=== PATIENT | male | born 1935 | race Caucasian/White ===

== ENCOUNTER → 2016-05-24 12:45 | Outpatient (CLI) | payer MEDICARE ==
[2012-08-16 07:41] VITALS: BMI 25.4
[~2016-05-24 12:45] MED LIST: ALLEGRA180 MG PO; ASPIRIN325 MG PO; BENADRYL25 MG PO; CRESTOR10 MG PO; FLOMAX0.4 MG PO; NEXIUM40 MG PO; NORVASC5 MG PO; PRINIVIL20 MG PO
== END | disposition home or self-care (01) ==
LOC: D.US 12:45
DX: M79.604 Pain in right leg (principal); R60.0 Localized edema

== ENCOUNTER → 2018-05-05 07:43 | Outpatient (CLI) | payer MEDICARE ==
[2012-08-16 07:41] VITALS: BMI 25.4
== END | disposition home or self-care (01) ==
LOC: D.RAD 07:43
PROVIDERS: ATTEND Internal Medicine Gastroenterology
DX: K92.1 Melena (principal)

== ENCOUNTER 2018-06-01 06:02 | Day surgery (SDC) | payer MEDICARE ==
[~2018-06-01] VITALS: Ht 167.6 cm; Wt 70.5 kg
[2018-06-01 06:25] LABS: HEMATOCRIT 36.5 % (42.0-54.0); HEMOGLOBIN 11.8 g/dL (13.5-17.5); MCH 26.8 pg (26.0-34.0); MCHC 32.3 g/dL (31.0-37.0); MCV 82.8 fL (80.0-100.0); MEAN PLATELET VOLUME 8.9 fL (7.4-10.4); RBC 4.41 10x6/uL (4.20-6.10); RDW 15.1 % (11.5-14.5)
[2018-06-01] MEDS ORDERED: XARELTO15 MG PO (07:12)
[2018-06-01 07:21] VITALS: BP 116/55; Ht 167.6 cm; Wt 70.5 kg
--- NOTE | 2018-06-01 09:53 | NUR ---
PER DR. MUJICA, RESUME ASA. IV D/C'D WITH CANNULA INTACT. VSS. NO C/O. DISCHARGE INSTRUCTIONS GIVEN, VERBALIZED AN UNDERSTANDING
--- NOTE | 2018-06-01 10:11 | OP ---
PATIENT NAME: CURT CARLISLE MEDICAL RECORD: [id number] :33 LOCATION:[facility] ADMISSION DATE: SURGEON: MARIE RACHEL MD DATE OF OPERATION: 06/01/2018 PROCEDURE: Colonoscopy with biopsy. REFERRING PHYSICIAN: Estephania Salguero MD INDICATIONS: Mr. Carlisle is a delightful 82-year-old gentleman with a history of hypertension and coronary artery disease, on Xarelto, who has had symptoms of rectal bleeding. He has been having bright red blood per rectum with and without a bowel movement over the past several months. He has been having frequent bowel movements and has been taking 5 Metamucil capsules daily. He had an outpatient single contrast barium enema, 05/05/2018, that showed diverticulosis involving the descending and sigmoid colon, but no mucosal lesions, mass or strictures were observed. He presents for outpatient colonoscopy. PREMEDICATIONS: Total IV anesthesia (advanced age), propofol 180 mg. INSTRUMENT: [employer] video colonoscope, pediatric. PROCEDURE AND FINDINGS: After receiving informed consent, Mr. Carlisle was placed in left lateral decubitus position and sedated as per anesthesia. After achieving an adequate level of sedation, digital rectal exam was performed that showed few external hemorrhoidal tags. No fissures or fistulas, normal sphincter tone, no palpable rectal masses. Colonoscope was introduced per rectally and advanced to the cecum without difficulty. The cecum and IC valve were identified. The terminal ileum was intubated and the distal small bowel mucosa was without erythema or ulcers. As the colonoscope was withdrawn, careful inspection was made of the rivera of the colon. Overall, the mucosa of the cecum, ascending, transverse and descending colon was normal; however, beginning around 40 cm down to the rectum, the mucosal appearance changed with a notable erythema and aphthous ulcers. Confluent from the sigmoid to the rectum. Multiple biopsies were taken from the rectum and sigmoid colon Multiple diverticula were seen in the sigmoid colon. Retroflexion in rectum showed hehx-cm-qnpeoquu internal hemorrhoids. A fair prep was present. Mr. Carlisle tolerated the procedure well, no immediate complications. ASSESSMENT: 1. Ulcerative proctosigmoiditis. 2. Mild sigmoid diverticulosis coli. 3. Normal-appearing terminal ileum. 4. Suoj-ya-difglbpf internal hemorrhoids. 5. Rectal bleeding likely secondary to colitis and hemorrhoids. RECOMMENDATIONS: 1. Follow up histopathology. 2. Avoid nonsteroidal anti-inflammatory drugs. 3. Sulfasalazine 500 mg 2 p.o. 3 times a day. 4. Anusol-HC suppositories 1 per rectum b.i.d. for 14 days. 5. Monthly CBCs and BMPs while he is on sulfasalazine. TRANSINT:[id number] Voice Confirmation ID: [id number] DOCUMENT ID: [id number] OPERATIVE REPORT [id number] CURT CARLISLE TERRI MD at 1011 CC: ESTEPHANIA SALGUERO [phone] DICTATION DATE: 06/01/18 0906 JAVA SDET: 06/01/18 0951 REG [facility] [address] [place] [address]
== END 2018-06-01 09:50 | disposition home or self-care (01) ==
LOC: D.OPS 06:02
PROVIDERS: Anesthesiology; ATTEND Internal Medicine Gastroenterology
DX: K51.30 Ulcerative (chronic) rectosigmoiditis without complications (principal); K57.30 Diverticulosis of large intestine without perforation or abscess without bleeding; K64.8 Other hemorrhoids; I10 Essential (primary) hypertension; I25.10 Atherosclerotic heart disease of native coronary artery without angina pectoris; Z79.01 Long term (current) use of anticoagulants; Z01.812 Encounter for preprocedural laboratory examination

== ENCOUNTER 2018-06-21 16:49 | Inpatient (IN) | payer MEDICARE ==
[~2018-06-21 16:49] MED LIST changes: +XARELTO15 MG PO
[2018-06-21] MEDS ORDERED: BAYER CHEWABLE81 MG PO (17:51)
[2018-06-21 19:47] LABS: CALC OSMOLALITY 274 mosm/kg (275-300); CALCIUM 8.3 mg/dL (8.5-10.1); CARBON DIOXIDE 26.2 mmol/L (21.0-32.0); CHLORIDE - SERUM 103 mmol/L (98-107); CREATININE - SERUM 0.8 mg/dL (0.6-1.3); GLUCOSE 103 mg/dL (74-106); SODIUM 138 mmol/L (136-145); UREA NITROGEN 11 mg/dL (7-18); eGFR NON AFRICAN AMERICAN > 90 mL/min (90-120)
[2018-06-21 22:28] VITALS: BP 117/56
[2018-06-22 02:23] VITALS: BMI 25.8
[2018-06-22 05:02] VITALS: BP 124/64
[2018-06-22 05:33] LABS: BASOPHILS 0.7 % (0-2); EOSINOPHILS 3.9 % (0-7); HEMATOCRIT 29.5 % (42.0-54.0); HEMOGLOBIN 9.7 g/dL (13.5-17.5); IMMATURE GRANULOCYTES 0.1 % (0-5); LYMPHOCYTES 14.2 % (15-50); MCH 25.9 pg (26.0-34.0); MCHC 32.9 g/dL (31.0-37.0); MCV 78.7 fL (80.0-100.0); MEAN PLATELET VOLUME 9.6 fL (7.4-10.4); NEUTROPHILS 69.1 % (40-80); PLATELET COUNT 253 10x3/uL (130-400); RBC 3.75 10x6/uL (4.20-6.10); RDW 14.9 % (11.5-14.5); WBC 6.7 10x3/uL (4.8-10.8)
[2018-06-22 06:11] LABS: ALKALINE PHOSPHATASE 281 U/L (46-116); ALT (SGPT) 36 U/L (10-68); AMYLASE - SERUM 213 U/L (25-115); BILIRUBIN - TOTAL 0.57 mg/dL (0.2-1.3); CALC OSMOLALITY 266 mosm/kg (275-300); CALCIUM 8.7 mg/dL (8.5-10.1); CARBON DIOXIDE 24.9 mmol/L (21.0-32.0); CHLORIDE - SERUM 103 mmol/L (98-107); CREATININE - SERUM 0.8 mg/dL (0.6-1.3); GLUCOSE 93 mg/dL (74-106); LIPASE 929 U/L (73-393); POTASSIUM - SERUM 3.9 mmol/L (3.5-5.1); SODIUM 134 mmol/L (136-145); UREA NITROGEN 10 mg/dL (7-18); eGFR NON AFRICAN AMERICAN > 90 mL/min (90-120)
[2018-06-22 08:20] VITALS: BP 115/61
[2018-06-22 12:26] VITALS: BP 130/52
[2018-06-22 14:44] VITALS: BP 110/48
[2018-06-22 20:52] VITALS: BP 101/53
[2018-06-23 03:53] LABS: BASOPHILS 0.8 % (0-2); EOSINOPHILS 3.8 % (0-7); HEMATOCRIT 32.7 % (42.0-54.0); HEMOGLOBIN 10.6 g/dL (13.5-17.5); IMMATURE GRANULOCYTES 0.2 % (0-5); LYMPHOCYTES 26.9 % (15-50); MCHC 32.4 g/dL (31.0-37.0); MCV 80.3 fL (80.0-100.0); MEAN PLATELET VOLUME 9.5 fL (7.4-10.4); MONOCYTES 9.6 % (2-11); NEUTROPHILS 58.7 % (40-80); PLATELET COUNT 268 10x3/uL (130-400); RBC 4.07 10x6/uL (4.20-6.10); WBC 6.3 10x3/uL (4.8-10.8)
[2018-06-23 04:10] LABS: ALBUMIN 2.1 g/dL (3.4-5.0); ALKALINE PHOSPHATASE 284 U/L (46-116); ALT (SGPT) 34 U/L (10-68); BILIRUBIN - TOTAL 0.54 mg/dL (0.2-1.3); CALC OSMOLALITY 268 mosm/kg (275-300); CARBON DIOXIDE 26.5 mmol/L (21.0-32.0); CHLORIDE - SERUM 102 mmol/L (98-107); CHOL - HDL RATIO 3.9 ratio (2.3-4.9); CHOLESTEROL, TOTAL 70 mg/dL (0-200); GLUCOSE 84 mg/dL (74-106); HDL CHOLESTEROL 18 mg/dL (32-96); LDL CHOLESTEROL 38 mg/dL (0-100); LDL-HDL RATIO 2.1 ratio (1.5-3.5); LIPASE 877 U/L (73-393); POTASSIUM - SERUM 3.6 mmol/L (3.5-5.1); PROTEIN - SERUM 6.8 g/dL (6.4-8.2); SODIUM 135 mmol/L (136-145); TRIGLYCERIDE 72 mg/dL (30-200); eGFR NON AFRICAN AMERICAN 76 mL/min (90-120)
[2018-06-23 04:12] LABS: AMYLASE - SERUM 108 U/L (25-115); UREA NITROGEN 13 mg/dL (7-18)
[2018-06-23 04:54] VITALS: BP 115/49
[2018-06-23 07:59] VITALS: BP 137/62
[2018-06-23 11:24] VITALS: BP 111/51
[2018-06-23 16:03] VITALS: BP 134/74
[2018-06-23 20:00] VITALS: BP 125/77
[2018-06-24] VITALS: BP 131/69
[2018-06-24 03:00] VITALS: BP 136/61
[2018-06-24 05:20] LABS: BASOPHILS 1.5 % (0-2); HEMOGLOBIN 9.6 g/dL (13.5-17.5); IMMATURE GRANULOCYTES 0.2 % (0-5); LYMPHOCYTES 20.5 % (15-50); MCH 26.3 pg (26.0-34.0); MCHC 33.1 g/dL (31.0-37.0); MCV 79.5 fL (80.0-100.0); MEAN PLATELET VOLUME 9.5 fL (7.4-10.4); MONOCYTES 12.6 % (2-11); NEUTROPHILS 60.2 % (40-80); PLATELET COUNT 276 10x3/uL (130-400); RBC 3.65 10x6/uL (4.20-6.10); WBC 6.1 10x3/uL (4.8-10.8)
[2018-06-24 05:35] LABS: ALBUMIN 1.8 g/dL (3.4-5.0); ALKALINE PHOSPHATASE 271 U/L (46-116); ALT (SGPT) 27 U/L (10-68); BILIRUBIN - TOTAL 0.39 mg/dL (0.2-1.3); CALC OSMOLALITY 270 mosm/kg (275-300); CALCIUM 8.6 mg/dL (8.5-10.1); CARBON DIOXIDE 21.9 mmol/L (21.0-32.0); CHLORIDE - SERUM 105 mmol/L (98-107); CREATININE - SERUM 0.8 mg/dL (0.6-1.3); GLUCOSE 89 mg/dL (74-106); LIPASE 380 U/L (73-393); POTASSIUM - SERUM 3.7 mmol/L (3.5-5.1); PROTEIN - SERUM 6.1 g/dL (6.4-8.2); SODIUM 136 mmol/L (136-145); UREA NITROGEN 13 mg/dL (7-18); eGFR NON AFRICAN AMERICAN > 90 mL/min (90-120)
[2018-06-24 05:36] LABS: AMYLASE - SERUM 54 U/L (25-115)
[2018-06-24 09:50] VITALS: BP 141/75
[2018-06-24 14:41] VITALS: BP 128/69
[2018-06-24 17:12] VITALS: BP 93/63
[2018-06-24 20:00] VITALS: BP 112/69
[2018-06-25] VITALS: BP 115/61
[2018-06-25 03:00] VITALS: BP 114/95
[2018-06-25 06:08] LABS: ALBUMIN 1.8 g/dL (3.4-5.0); ALKALINE PHOSPHATASE 397 U/L (46-116); ALT (SGPT) 40 U/L (10-68); AMYLASE - SERUM 51 U/L (25-115); BILIRUBIN - TOTAL 0.49 mg/dL (0.2-1.3); CALC OSMOLALITY 274 mosm/kg (275-300); CALCIUM 8.7 mg/dL (8.5-10.1); CARBON DIOXIDE 23.5 mmol/L (21.0-32.0); CHLORIDE - SERUM 106 mmol/L (98-107); CREATININE - SERUM 0.8 mg/dL (0.6-1.3); GLUCOSE 96 mg/dL (74-106); LIPASE 354 U/L (73-393); POTASSIUM - SERUM 3.4 mmol/L (3.5-5.1); SODIUM 138 mmol/L (136-145); UREA NITROGEN 10 mg/dL (7-18); eGFR NON AFRICAN AMERICAN > 90 mL/min (90-120)
[2018-06-25 06:43] LABS: BASOPHILS 1.3 % (0-2); EOSINOPHILS 5.9 % (0-7); HEMATOCRIT 30.8 % (42.0-54.0); HEMOGLOBIN 10.1 g/dL (13.5-17.5); IMMATURE GRANULOCYTES 0.2 % (0-5); LYMPHOCYTES 24.1 % (15-50); MCH 26.2 pg (26.0-34.0); MCHC 32.8 g/dL (31.0-37.0); MCV 79.8 fL (80.0-100.0); MEAN PLATELET VOLUME 9.8 fL (7.4-10.4); MONOCYTES 14.3 % (2-11); NEUTROPHILS 54.2 % (40-80); PLATELET COUNT 312 10x3/uL (130-400); RBC 3.86 10x6/uL (4.20-6.10); RDW 15.2 % (11.5-14.5); WBC 5.6 10x3/uL (4.8-10.8)
[2018-06-25 08:21] VITALS: BP 144/72
[2018-06-25] MEDS ORDERED: Delzicol PO (12:50)
[2018-06-25] MEDS ORDERED: Pancrease 5000,17,00 PO (12:50)
--- NOTE | 2018-06-25 13:36 | MORECARE ---
CASE MANAGEMENT DISCHARGE SUMMARY PATIENT: CURT DAY UNIT: [id number] ADM DATE: 06/22/18 AGE: 82 : 34 SEX: M ROOM/BED: D.2205 AUTHOR: LEONA HERR PHYSICIAN: REFERRING PHYSICIAN: ESTEPHANIA SALGUERO MD DATE OF SERVICE: 06/25/18 Discharge Plan Patient Name[facility] CURT DAY [facility] [facility] 1935 Planned Disposition: Home Anticipated Discharge Date: 06/25/18 Discharge Date: Expected LOS: 3 Initial Reviewer: [email or web address] Initial Review Date: 06/25/2018 Generated: 06/25/18 2:36 pm DCPIA - Discharge Planning Initial Assessment Updated by [email or web address]: Bren Vargas on 06/25/18 1:32 pm * Is the patient Alert and Oriented? Yes * How many steps to enter\exit or inside your home? * PCP DR. SALGUERO * Pharmacy [facility] * Preadmission Environment Home with Family * ADLs Independent * Equipment Shower Chair * List name and contact numbers for known caregivers / representatives who currently or will assist patient after discharge: JUVENCIO DAY [phone] * Verbal permission to speak to the caregivers and representatives has been obtained from the patient. Yes * Community resources currently utilized None * Additional services required to return to the preadmission environment? Yes * Can the patient safely return to the preadmission environment? Yes * Has this patient been hospitalized within the prior 30 days at any hospital? Yes Patient Name: CURT DAY Page [id number] at 1336 All edits/amendments must be made on the electronic document DICTATION DATE: 06/25/18 1336 HEEL SPRAYER: TUSHAR 06/25/18 1336 RPT#: [id number] DC DATE: STATUS: ADM IN [facility] [address] [place] [address] END OF REPORT
--- NOTE | 2018-06-25 13:43 | MORECARE ---
CASE MANAGEMENT DISCHARGE SUMMARY PATIENT: CURT DAY UNIT: [id number] ADM DATE: 06/22/18 AGE: 82 : 34 SEX: M ROOM/BED: D.2205 AUTHOR: LEONA HERR PHYSICIAN: REFERRING PHYSICIAN: ESTEPHANIA SALGUERO MD DATE OF SERVICE: 06/25/18 Discharge Plan Patient Name: CURT DAY Facility[facility]:[place] : 1935 Planned Disposition: Home Anticipated Discharge Date: 06/25/18 Discharge Date: Expected LOS: 3 Initial Reviewer: [email or web address] Initial Review Date: 06/25/2018 Generated: 06/25/18 2:43 pm Comments DCP- Discharge Planning Updated by [email or web address]: Bren Vargas on 06/25/18 12:[address] Patient Name: CURT DAY Admission Status: Elective Accout number: [id number] Admission Date: 06-22-2018 : 1935 Admission Diagnosis:ESSENTIAL (PRIMARY) HYPERTENSION Attending: ESTEPHANIA SALGUERO Current LOS: 3 Anticipated DC Date: 06-25-2018 Planned Disposition: Home Primary Insurance: MEDICARE A & B Discharge Planning Comments: CM SPOKE WITH PATIENT REGARDING D/C NEEDS AND PLANS. PATIENT IS TO D/C HOME TODAY AND HIS DAUGHTER (JUVENCIO) WILL DRIVE HIM HOME. PATIENT STATED HE IS INDEPENDENT AT HOME AND HAS A SHOWER CHAIR. PATIENTS PCP IS DR. SALGUERO AND PHARMACY IS [facility]. PATIENT REFUSED HOME HEALTH AND FORM SIGNED. IMM WAS SERVED. CM WILL CONTINUE TO FOLLOW PATIENT WITH D/C NEEDS AND PLANS. Closet Builder: Bren Vargas DCPIA - Discharge Planning Initial Assessment Updated by [email or web address]: Bren Vargas on 06/25/18 1:32 pm * Is the patient Alert and Oriented? Yes * How many steps to enter\exit or inside your home? * PCP DR. SALGUERO * Pharmacy [facility] * Preadmission Environment Home with Family * ADLs Independent * Equipment Shower Chair * List name and contact numbers for known caregivers / representatives who currently or will assist patient after discharge: JUVENCIO DAY [phone] * Verbal permission to speak to the caregivers and representatives has been obtained from the patient. Yes * Community resources currently utilized None * Additional services required to return to the preadmission environment? Yes * Can the patient safely return to the preadmission environment? Yes * Has this patient been hospitalized within the prior 30 days at any hospital? Yes Coverage Notice Reviewer: [email or web address] Adele Vargas Notice Issued Date-Time: 06/25/2018 13:25 Notice Type: IM Discharge Notice Notice Delivered To: Patient Relationship to Patient: Metal Treater Name: Delivery Method: HAND - Hand Delivered Cintia Days: Prior Verbal Notification: Recipient Understood Notice: Yes Recipient Signature: Yes Med Rec Note Co-signed by Attending: Coverage Notice Comment: Reviewer: [email or web address] Adele Vargas Notice Issued Date-Time: 06/25/2018 13:25 Notice Type: Patient Choice Letter Notice Delivered To: Patient Relationship to Patient: Metal Treater Name: Delivery Method: HAND - Hand Delivered Cintia Days: Prior Verbal Notification: Recipient Understood Notice: Yes Recipient Signature: Yes Med Rec Note Co-signed by Attending: Coverage Notice Comment: REFUSAL OF HOME HEALTH FORM SIGNED Last DP export: 06/25/18 12:36 p Patient Name: CURT DAY Page [id number] at 1343 All edits/amendments must be made on the electronic document DICTATION DATE: 06/25/18 1343 SURG NURSE: TUSHAR 06/25/18 1343 RPT#: [id number] DC DATE: STATUS: ADM IN [facility] [address] [place] [address] END OF REPORT
== END 2018-06-25 14:08 | disposition home or self-care (01) | DRG 439 ==
LOC: D.MS 16:49
PROVIDERS: ADMIT Family Medicine
DX: K85.90 Acute pancreatitis without necrosis or infection, unspecified (principal); K51.30 Ulcerative (chronic) rectosigmoiditis without complications; I10 Essential (primary) hypertension; I48.91 Unspecified atrial fibrillation; K21.9 Gastro-esophageal reflux disease without esophagitis

== ENCOUNTER → 2018-08-04 09:09 | Outpatient (CLI) | payer MEDICARE ==
[~2018-08-04 09:09] MED LIST changes: +BAYER CHEWABLE81 MG PO; +Delzicol PO; +Pancrease 5000,17,00 PO
--- NOTE | 2018-08-08 14:37 | ST ---
PATIENT:CURT DAY MEDICAL RECORD: [id number] SEX: M LOCATION:[facility] ORDER #: ADMISSION DATE: 08/04/18 AGE OF PATIENT: 82 REFERRING PHYSICIAN: INTERPRETING PHYSICIAN: IVY ALEXANDER MD DATE OF SERVICE: 08/04/2018 PROCEDURE: Nuclear stress test. INDICATIONS: Angina, coronary artery disease, shortness of breath, hypertension, and hyperlipidemia. He was exercised on standard Lexiscan protocol with 32 mCi of sestamibi injected at peak stress, 11 mCi used previously for rest images. FINDINGS: Gated SPECT reveals a dilated cardiomyopathy, ejection fraction moderately to severely reduced at 33%. There is decreased thickening and brightening throughout the inferior segments. SPECT imaging: Cardiolite was used as myocardial perfusion agent. There is definite fixed perfusion defect inferiorly. This includes the basal, mid, apical, inferior segments. There is reversibility laterally. This includes apical lateral, mid lateral, and basal lateral segments. OVERALL IMPRESSION: This is markedly abnormal nuclear stress test, dilated cardiomyopathy, previous inferior myocardial infarction with ongoing ischemia laterally suggestive of coronary artery disease that is significant, possibly multivessel disease. We will proceed with coronary angiography as a followup study. TRANSINT:[id number] Voice Confirmation ID: [id number] DOCUMENT ID: [id number] IVY ALEXANDER MD at 1437 CC: ESTEPHANIA SALGUERO [phone] DICTATION DATE: 08/04/18 1332 ADOPTION COORDINATOR: 08/05/18 0242 DEP CLI 08/04/18 [facility] [address] [place] [id number]
== END | disposition home or self-care (01) ==
LOC: D.HCCARDIO 09:09
PROVIDERS: ATTEND Internal Medicine Interventional Cardiology
DX: I25.10 Atherosclerotic heart disease of native coronary artery without angina pectoris (principal)

== ENCOUNTER 2018-08-09 09:08 | Outpatient (CLI) | payer MEDICARE ==
[~2018-08-09] VITALS: Ht 167.6 cm; Wt 61.4 kg
--- NOTE | ~2018-08-09 | HEMODYNAMI ---
PATIENT:CURT DAY MEDICAL RECORD: [id number] : 33 LOCATION:[facility] ADMISSION DATE: 08/09/18 Generatedon:08/09/201812:22 Patient name: CURT DAY Patient #: [id number] SSN: : 1935 Date of study: 08/09/2018 Page: Of Hemodynamic Procedure Report Patient Data Patient Demographics Procedure consent was obtained First Name: CURT Gender: Male Last Name: BARB : 1935 Middle Initial: F Age: 82 year(s) Patient #: [id number] Race: Additional ID: [id number] Contact details Address: [address] [address] State: [place] City: [place] Zip code: [address] Past Medical History Allergies: No known allergies Admission Admission Data Admission Date: 08/09/2018 Admission Time: 9:08 Lab Results Lab Result Date: 08/09/2018 Lab Result Time: 0:00 Biochemistry Name Units Result Min Max BUN mg/dl 12 --(-*--)-- 7 18 Creatinine mg/dl 1 --(--*-)-- 0.6 1.3 CBC Name Units Result Min Max Hemoglobin g/dl 12.3 *-(----)-- 13.5 17.5 Procedure Procedure Types Cath Procedure Diagnostic Procedure C [facility] w/Coronaries Procedure Description Procedure Date Procedure Date: 08/09/2018 Procedure Start Time: 12:07 Procedure End Time: 12:19 Procedure Staff Name Function Ton Victor MD Performing Physician Petey Melendez RT Monitor Parveen Burrows RN Nurse Morgan Guido RT Scrub Procedure Data Cath Procedure Fluoroscopy Diagnostic fluoroscopy Total fluoroscopy Time: 1.6 time: 1.6 min min Diagnostic fluoroscopy Total fluoroscopy dose: 488 dose: 488 mGy mGy Contrast Material Contrast Material Type Amount (ml) Isovue 300 70 Entry Location Entry Primary Successful Side Size Upsize Upsize Entry Closure Succes sful Closure Location (Fr) 1 (Fr) 2 (Fr) Remarks Device Remarks Femoral Right 5 Fr Exoseal artery Estimated blood loss: 10 ml Diagnostic catheters Device Type Used For End Catheter Placement MULTIPACK Pigtail 5 Fr Procedure catheter MULTIPACK JL 4.0 5Fr Procedure catheter MULTIPACK 3DRC 5Fr Procedure catheter Procedure Medications Medication Administration Route Dosage Oxygen etCO2 Nasal cannula 2 l/min Lidocaine 2% added to field 20 Heparin Flush Bag added to field 2 bags (1000units/500ml NS) 0.9% NaCl I.V. 100 ml/hr Versed I.V. 1 mg Fentanyl I.V. 50 mcg Versed I.V. 1 mg Fentanyl I.V. 50 mcg Hemodynamics Rest HGB: 12.3 (g/dl) Heart Rate: 60 (bpm) Pressure Samples Time Site Value (mmHg) Purpose Heart Use Rate(bpm) 12:08 LV 85/5,10 Snapshot 61 Snapshots Pre Cath Intra NCS Post Cath Vital Signs Time Heart Resp SPO2 etCO2 NIBP (mmHg) Rhythm Pain Sedation Rate (ipm) (%) (mmHg) Status Level (bpm) 11:57:08 55 12 100 24.7 121/72(102) A-Fib 0 (11) 10(A) , No pain 12:01:18 61 11 99 14.2 111/61(92) A-Fib 0 (11) 10(A) , No pain 12:05:24 60 11 99 14.2 107/61(88) A-Fib 0 (11) 10(A) , No pain 12:09:30 65 10 98 10.4 103/61(86) A-Fib 0 (11) 9(A) , No pain 12:13:36 63 10 99 8.9 98/56(81) A-Fib 0 (11) 9(A) , No pain 12:17:39 61 12 99 14.9 98/54(83) A-Fib 0 (11) 10(A) , No pain Medications Time Medication Route Dose Verified Delivered Reason Notes Eff ectiveness by by 11:48:19 Oxygen etCO2 2 Ton Saini used for Nasal l/min Kayleigh Burrows central office repairer supervisor cannula 11:48:26 Lidocaine 2% added 20ml Ton Camilo for local to vial Kayleigh Victor MD anesthetic field 11:48:32 Heparin Flush added 2 Ton Camilo used for Bag to bags Kayleigh Victor MD procedure (1000units/500ml field NS) 11:48:41 0.9% NaCl I.V. 100 Ton Saini Per ml/hr Kayleigh Burrows RN physician 12:05:02 Fentanyl I.V. 50 Ton Saini for luis f Burrows RN sedation 12:05:55 Versed I.V. 1 mg Ton Saini for Kayleigh Burrows RN sedation 12:10:25 Versed I.V. 1 mg Ton Saini for Kayleigh Burrows RN sedation 12:10:29 Fentanyl I.V. 50 Ton Saini for luis f Burrows RN sedation Procedure Log Time Note 11:39:48 Informed consent obtained and on chart 11:39:55 Diagnostic Cath Status : Elective 11:40:41 Petey Melendez RT(R) (CV) sent for patient. Start room use. 11:40:43 Time tracking: Regular hours (M-F 7:00 - 5:00) 11:40:53 Plan of Care:Hemodynamics will remain stable., Cardiac rhythm will remain stable., Comfort level will be maintained., Respiratory function will remain adequate., Patient/ family verbilizes understanding of procedure., Procedure tolerated without complication., Recovers from procedure without complications.. 11:48:19 Oxygen 2 l/min etCO2 Nasal cannula was administered by Parveen Burrows RN; used for procedure; 11:48:26 Lidocaine 2% 20ml vial added to field was administered by Ton Victor MD; for local anesthetic; 11:48:32 Heparin Flush Bag (1000units/500ml NS) 2 bags added to field was administered by Ton Victor MD; used for procedure; 11:48:41 0.9% NaCl 100 ml/hr I.V. was administered by Parveen Burrows RN; Per physician; 11:55:52 Patient received from Pre/Post Procedure Room to [facility] 2 Alert and oriented. Tansferred to table in Supine position. 11:55:54 Warm blankets applied, and michael hugger turned on for patient comfort. 11:55:56 Correct patient and procedure confirmed by team. 11:55:58 ECG and BP/O2 sat monitors applied to patient. 11:55:58 Vital chart was started 11:55:59 Baseline sample Acquired. 11:56:06 Rhythm: atrial fibrillation 11:56:18 Full Disclosure recording started 11:56:44 H&P Date Dictated: 07/26/2018 Within 30 days and on chart., H&P Addendum completed by physician on day of procedure. (MUST COMPLETE FOR ALL OUTPATIENTS). 11:56:48 Pre-procedure instructions explained to patient. 11:56:55 Family in patients room. 11:56:58 Patient NPO since Midnight. 11:57:12 Patient allergic to No known allergies 11:57:27 Is the patient allergic to Iodine/contrast media? No. 11:57:36 Is patient on blood thinner?Yes 11:57:40 ACC The patient was administered the following blood thiners within the last 24 hours: Xarelto 11:57:43 Patient diabetic? No. 11:57:46 ----Pre-sedation anethsthesia assessment.---- 11:57:49 Previous problem with sedation/anesthesia? No ? 11:57:51 Snore? Yes 11:57:52 Sleep apnea? No 11:57:54 Deviated septum? No 11:57:55 Opens mouth fully? No 11:58:18 Sticks out tongue? Yes 11:58:22 Airway obstruction? No ? 11:58:25 Dentures? No ? 11:58:30 Pre procedure: right dorsailis pedis pulse 2+ Normal; easily identifiable; not easily obliterated 11:58:35 Patient pain scale 0/10 ?. 12:00:49 IV patent on arrival in left forearm with 0.9% NaCl at KVO. 12:03:08 Zero performed for pressure channel P1 12:03:48 Lab Result : Creatinine 1 mg/dl 12:03:48 Lab Result : BUN 12 mg/dl 12:03:48 Lab Result : Hemoglobin 12.3 g/dl 12:04:02 Right groin area was prepped with chlora-prep and draped in sterile fashion 12:04:03 Alarms reviewed by R. N. 12:04:04 Sharps counted by scrub and verified by R.N. 12:04:06 Physician arrived 12:04:06 --------ALL STOP TIME OUT------ 12:04:07 Final Timeout: patient, procedure, and site verified with staff and physician. All members of the team are in agreement. 12:04:10 Right groin site verified by team. 12:04:17 Maximum allowable Isovue 300 dose 300ml. Physician notified. (300ml for normal creatinines. For patients with creatinine of 1.7 or higher multiply weight(kg) x 5 divided by creatinine.) 12:04:22 Fire Safety Assessment: A--An alcohol-based skin anteseptic being used preoperatively., C--Open oxygen or nitrous oxide is being used., D--An ESU, laser, or fiber-optic light is being used. 12:04:26 Physical assessment completed. ASA score P 2 - A patient with mild systemic disease as per Ton Victor MD. 12:04:31 Sedation plan: IV Moderate Sedation Medication:Versed, Fentanyl 12:05:02 Fentanyl 50 mcg I.V. was administered by Parveen Burrows RN; for sedation; 12:05:55 Versed 1 mg I.V. was administered by Parveen Burrows RN; for sedation; 12:06:52 Use device set Femoral Dx 12:06:54 ACIST Syringe (33573) opened to sterile field. 12:06:55 Bag Decanter (2002S) opened to sterile field. 12:06:58 Medline Cath Pack ([id number]) opened to sterile field. 12:06:58 DIAGNOSTIC WIRE .035 260cm J wire (407575) opened to sterile field. 12:07:01 ACIST Hand Control (24614) opened to sterile field. 12:07:02 ACIST Manifold (23675) opened to sterile field. 12:07:04 DIAGNOSTIC Multipack 5Fr catheter set ([id number]) opened to sterile field. 12:07:04 Tegaderm 4 x 4 (1626W) opened to sterile field. 12:07:07 SHEATH 5FR [place] (ITT828) opened to sterile field. 12:07:13 Procedure started. 12:07:16 Local anesthetic to right femoral artery with Lidocaine 2% by Ton Victor MD.INITIAL ACCESS ONLY 12:07:34 A 5 Fr sheath was inserted into the Right Femoral artery 12:07:49 A MULTIPACK Pigtail 5 Fr catheter was advanced over the wire and used for Procedure. 12:08:19 LV hemodynamics recorded. 12:08:21 LV gram done using OCONNELL 12:08:48 EF : 35 % 12:08:58 Catheter removed. 12:09:09 A MULTIPACK JL 4.0 5Fr catheter was advanced over the wire and used for Procedure. 12:10:25 Versed 1 mg I.V. was administered by Parveen Burrows RN; for sedation; 12:10:25 LCA angiography performed. 12:10:29 Fentanyl 50 mcg I.V. was administered by Parveen Burrows RN; for sedation; 12:11:05 Catheter removed. 12:11:47 A MULTIPACK 3DRC 5Fr catheter was advanced over the wire and used for Procedure. 12:12:44 MUÑOZ NON GRAFTED 12:13:02 SVG to OM angiography performed. 12:13:19 RCA GRAFT CLOSED 12:13:45 Catheter removed. 12:13:47 EXOSEAL 5Fr (EX500) opened to sterile field. 12:14:16 Sheath removed intact; hemostasis achieved with Exoseal to the Right Femoral artery. 12:14:25 Procedure ended.(Physican Out) 12:15:53 Fluoroscopy time 01.60 minutes. 12:15:57 Fluoroscopy dose: 488 mGy 12:15:57 Flurop Dose total: 488 12:16:03 Contrast amount:Isovue 300 70ml. 12:16:06 Sharps counted by scrub and verified by R.N. 12:16:52 Insertion/operative site no bleeding no hematoma. 12:16:56 Post-op/insertion site Right Femoral artery dressed using a 4 x 4 and Tegaderm. 12:17:01 Post right femoral artery:stable 12:17:18 Post-procedure physical assessment completed. ASA score P 2 - A patient with mild systemic disease as per Ton Victor MD. 12:18:20 Estimated blood loss: 10 ml 12:18:24 Post procedure rhythm: sinus bradycardia 12:18:27 Patient needs reinforcement of post procedure teaching. 12:18:29 Procedure and supply charges have been captured, reviewed, submitted and are correct. 12:18:56 Vital chart was stopped 12:18:58 See physician's report for complete and final results. 12:19:08 Report given to Pre/Post Procedure Room. 12:19:12 Patient transfered to Pre/Post Procedure Room with Bed. 12:19:17 Procedure ended. 12:19:17 Full Disclosure recording stopped 12:19:21 End room use (Document Last) Device Usage Item Name Manufacture Quantity Catalog Hospital Part Current Minimal L ot# / Number Charge Number Stock Stock Serial# Code ACIST Acist 1 68527 [id number] 277138 103691 20 Syringe Medical (21748) Systems Inc Bag Microtek 1 2001S 297285 19619 555604 5 Decanter Medical Inc. () Medline Medline 1 [id number] 698535 33244 423076 5 Cath Pack ([id number]) DIAGNOSTIC [place] 1 953881 034088 840039 919808 30 WIRE .035 260cm J wire (592691) ACIST Hand Acist 1 73565 521716 730120 252943 5 Control Medical (84283) Systems Inc ACIST Acist 1 79416 122115 194175 800098 5 Manifold Medical (00752) Systems Inc DIAGNOSTIC Cardinal 1 PD4038 777520 18602 888295 30 Multipack Health 5Fr catheter set (HF6701) Tegaderm 4 3M 1 1626W 708779 031726 042762 5 x 4 (1626W) SHEATH 5FR Terumo 1 KFE051 715484 759660 005065 5 [place] (VSU451) MULTIPACK Cardinal 1 052737 5 Pigtail 5 Health Fr catheter MULTIPACK Cardinal 1 453827 5 JL 4.0 5Fr Health catheter MULTIPACK Cardinal 1 933450 5 3DRC 5Fr Health catheter EXOSEAL 5Fr Cardinal 1 EX500 116881 641447 524735 10 (EX500) Health Signature Audit [place] Stage Time Signature Unsigned Intra-Procedure 08/09/2018 Morgan Guido 12:22:41 PM RT(R) Signatures Monitor : Petey Melendez RT Signature : Date : Time : [facility] [address] [place] [address]
[2018-08-09] MEDS ORDERED: BENADRYL25 MG PO (09:52)
[2018-08-09] MEDS ORDERED: NORVASC5 MG PO (09:53)
[2018-08-09 10:05] VITALS: BP 115/70; Ht 167.6 cm; Wt 61.4 kg
[2018-08-09 10:18] LABS: BASOPHILS 0.5 % (0-2); EOSINOPHILS 3.4 % (0-7); HEMATOCRIT 37.8 % (42.0-54.0); HEMOGLOBIN 12.3 g/dL (13.5-17.5); MCH 26.6 pg (26.0-34.0); MCHC 32.5 g/dL (31.0-37.0); MCV 81.6 fL (80.0-100.0); MEAN PLATELET VOLUME 9.1 fL (7.4-10.4); MONOCYTES 9.2 % (2-11); NEUTROPHILS 44.9 % (40-80); RBC 4.63 10x6/uL (4.20-6.10); RDW 16.6 % (11.5-14.5); WBC 4.4 10x3/uL (4.8-10.8)
[2018-08-09 10:24] LABS: PLATELET COUNT 222 10x3/uL (130-400)
[2018-08-09 10:26] LABS: CALC OSMOLALITY 278 mosm/kg (275-300); CALCIUM 9.6 mg/dL (8.5-10.1); CARBON DIOXIDE 28.3 mmol/L (21.0-32.0); CHLORIDE - SERUM 104 mmol/L (98-107); GLUCOSE 100 mg/dL (74-106); POTASSIUM - SERUM 3.6 mmol/L (3.5-5.1); SODIUM 140 mmol/L (136-145); UREA NITROGEN 12 mg/dL (7-18); eGFR NON AFRICAN AMERICAN 76 mL/min (90-120)
--- NOTE | 2018-08-09 12:28 | NUR ---
PT ARRIVED BY STRETCHER. PLACED ON MONITORS. ASSESSMENT COMPLETED. FAMILY AT BEDSIDE
--- NOTE | 2018-08-09 12:45 | NUR ---
PT RESTING COMFORTABLY. VSS. RIGHT GROIN DRESSING C/D/I. NO S/S OF HEMATOMA NOTED.
--- NOTE | 2018-08-09 13:15 | NUR ---
PT RESTING COMFORTABLY. VSS. RIGHT GROIN DRESSING C/D/I. NO S/S OF HEMATOMA NOTED.
--- NOTE | 2018-08-09 13:30 | NUR ---
HEAD OF BED INC TO 30 DEGREES. TOLERATED WELL. SET UP WITH SANDWICH TRAY AND DRINK. RIGHT GROIN DRESSING C/D/I. NO S/S OF HEMATOMA NOTED.
--- NOTE | 2018-08-09 14:00 | NUR ---
LEFT FA PIV D/C'D WITH CATH TIP INTACT. TOLERATED WELL. RIGHT GROIN DRESSING C/D/I. PT INSTRUCTED TO GET DRESSED. AMBULATED TO RESTROOM WITH ASSIST. VOIDED WITHOUT DIFFICULTY. WAITING ON PT'S DAUGHTER TO COME BACK FROM LETTING THEIR DOGS OUT, THEN WILL DISCUSS DISCHARGE INSTRUCTIONS WITH PT AND PT'S FAMILY.
--- NOTE | 2018-08-09 14:30 | NUR ---
DISCUSSED DISCHARGE INSTRUCTIONS WITH PT AND PT'S FAMILY. THEY VOICED UNDERSTANDING. RIGHT GROIN DRESSING C/D/I. NO S/S OF HEMATOMA NOTED.
--- NOTE | 2018-08-09 14:40 | NUR ---
PT TAKEN OUT TO VEHICLE BY WHEELCHAIR. NO S/S OF DISTRESS NOTED. ALL BELONGINGS AND PAPERWORK IN HAND.
--- NOTE | 2018-08-15 17:17 | OP ---
PATIENT NAME: CURT DAY MEDICAL RECORD: [id number] :33 LOCATION:[facility] ADMISSION DATE: SURGEON: IVY ALEXANDER MD DATE OF OPERATION: 08/09/2018 PROCEDURES: 1. Left heart catheterization. 2. Selective coronary angiography. 3. Left ventriculogram. 4. Vein graft angiography. 5. MUÑOZ angiography. INDICATION: Angina and coronary artery disease. PROCEDURE IN DETAIL: After informed consent was obtained and after a detailed description of the risks, benefits as well as alternative therapies, the patient elected to proceed with angiogram and heart catheterization. The right femoral area was prepped and draped in normal sterile fashion. Right femoral artery was cannulated via modified Seldinger technique with placement of 5-Algerian sheath. All catheters exchanged through this sheath. FINDINGS: The left ventriculogram was performed in the standard 30-degree OCONNELL view reveals global hypokinesis, ejection fraction 30% to 35%. SELECTIVE CORONARY ANGIOGRAPHY: 1. Left main is with no significant angiographic disease. 2. Left anterior descending has mild irregularities, but no flow-limiting stenosis. 3. The left circumflex has a 95% stenosis of the first obtuse marginal, otherwise only mild irregularities. 4. Vein graft to the first obtuse marginal is widely patent. 5. 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 6. Vein graft to the RCA is totally occluded. OVERALL IMPRESSION: Wide patency of the LAD and circumflex with excellent collateralization of the RCA. Continue medical management of the coronary artery disease and cardiac risk factors and cardiomyopathy. 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
== END 2018-08-09 14:40 | disposition home or self-care (01) ==
LOC: D.CATH 09:08
PROVIDERS: ATTEND Internal Medicine Interventional Cardiology
DX: I25.119 Atherosclerotic heart disease of native coronary artery with unspecified angina pectoris (principal); E78.5 Hyperlipidemia, unspecified; I48.91 Unspecified atrial fibrillation; I10 Essential (primary) hypertension; Z01.812 Encounter for preprocedural laboratory examination